=== PATIENT | female | born 1980 | race Two or more races ===

== ENCOUNTER 2016-09-28 13:49 | Emergency (ER) | payer MEDICAID ==
[2016-09-28] MEDS ORDERED: MORPHINE SULFATE 4 MG/ML SYRINGE ONE (15:21)
[2016-09-28] MEDS ORDERED: MAALOX/LIDO2%VISC/SIMETHICONE 40 ML BOT ONE (15:21)
[2016-09-28] MEDS ORDERED: SODIUM CHLORIDE 0.9% 1,000 ML ONE (15:21)
[2016-09-28] MEDS ORDERED: ONDANSETRON 4 MG/2ML 2 ML VIAL ONE (15:21)
[2016-09-28 15:30] LABS: ABSOLUTE NEUTROPHIL COUNT 3.7 K/mm3 (1.8-7.7); BASO # 0.1 K/mm3 (0.0-0.2); BASO % 0.9 % (0.2-1.0); EOS # 0.3 (0.0-0.5); EOS % 5.3 % (0.9-2.9); HEMATOCRIT 39.1 % (37.0-47.0); HEMOGLOBIN 13.3 gm/l (12.0-16.0); IMM NEUT% 0.2 % (0-1); LYMPH # 0.9 (1.0-4.8); LYMPH % 16.5 % (15-45); MEAN CELL VOLUME 89.9 fl (81.0-99.0); MEAN CORPUSCULAR HEMOGLOBIN 30.6 pg (27.0-31.0); MEAN PLATELET VOLUME 10.4 fl (7.4-10.4); MONO # 0.3 (0.0-0.8); MONO % 6.3 % (4-12); NEUT % 70.8 % (43-75); PLATELET COUNT 272 K/mm3 (130-400); RED CELL DISTRIBUTION WIDTH 12.9 % (11.5-14.5)
[2016-09-28 15:40] LABS: ALB/GLOB RATIO 1.6 (>1.0); ALBUMIN 4.1 gm/dL (3.5-5.7); CALCIUM 8.8 mg/dL (8.6-10.3)
--- NOTE | 2016-09-28 17:00 | US ---
Exam: Gallbladder ultrasound COMPARISON: 11/10/2010 INDICATION: Intermittent right upper quadrant pain with nausea and vomiting. FINDINGS: Gallbladder ultrasound was obtained. There is a large solitary stone within the gallbladder measuring up to at least 2.6 cm which was present on prior ultrasound. This was located within the gallbladder fundus and was not mobile. No additional gallstones are identified. There is no gallbladder wall thickening or pericholecystic fluid. Patient was tender over the gallbladder although I do not believe a sonographic Bray sign was elicited. The visualized common bile duct is normal at 6 mm. IMPRESSION: Cholelithiasis without sonographic features of acute cholecystitis. Report called to Dr. Grove at 1656 hours 09/28/2016.
== END 2016-09-28 17:36 | disposition home or self-care (01) ==
LOC: ED 13:49
DX: K80.80 Other cholelithiasis without obstruction (principal); J06.9 Acute upper respiratory infection, unspecified; R10.9 Unspecified abdominal pain
CPT/HCPCS: 83690; 85025; 80053; 76705; 96375; 99284; 96374; 93005; 99283; A9270; J2270; J2405; J7030

== ENCOUNTER 2016-10-10 17:06 | Emergency (ER) | payer MEDICAID ==
[2016-10-10 21:06] LABS: SPECIFIC GRAVITY 1.015 (1.001-1.030); URINE BILIRUBIN NEGATIVE (NEGATIVE); URINE BLOOD NEGATIVE (NEGATIVE); URINE GLUCOSE (UA) NEGATIVE (NEGATIVE); URINE LEUKOCYTE ESTERASE NEGATIVE (NEGATIVE); URINE NITRITE NEGATIVE (NEGATIVE); URINE PROTEIN NEGATIVE (NEGATIVE); URINE UROBILINOGEN NORMAL (0-1 mg/dl)
[2016-10-10 21:13] LABS: URINE APPEARANCE CLEAR; URINE COLOR YELLOW
[2016-10-10 21:14] LABS: HCG,QUALITATIVE URINE NEGATIVE
== END 2016-10-10 21:50 | disposition home or self-care (01) ==
LOC: ED 17:06
DX: R42 Dizziness and giddiness (principal)

== ENCOUNTER 2017-01-13 04:34 | Emergency (ER) | payer MEDICAID ==
[2017-01-13] MEDS ORDERED: CEPHALEXIN 500 MG CAPSULE ONE (05:15)
[2017-01-13] MEDS ORDERED: ONDANSETRON 4 MG ODT TAB ONE (05:15)
[2017-01-13] MEDS ORDERED: PREDNISONE 20 MG TABLET ONE (05:15)
[2017-01-13] MEDS ORDERED: HYDROCODONE/ACETAMINOPHEN 5/325MG TABLET ONE (05:16)
== END 2017-01-13 05:32 | disposition home or self-care (01) ==
LOC: ED 04:34
DX: H66.91 Otitis media, unspecified, right ear (principal)
CPT/HCPCS: 99283 ×2; A9270 ×3; J7512